=== PATIENT | female | born 2005 | race African-American/Black ===

== ENCOUNTER 2024-01-16 09:07 | Emergency (ER) | payer SELFPAY ==
[2024-01-16 09:10] VITALS: BP 123/83
--- NOTE | 2024-01-16 09:40 | ED.GENMED ---
History of Present Illness
<Sonia Emery PA-C - Last Filed: 01/16/24 10:19>
General
Chief Complaint: Head Injury
Source: patient
Exam Limitations: none
Time Seen by Provider: 01/16/24 09:15
Nursing documentation reviewed up to this point in time: agreed with
History of Present Illness
History of Present Illness:
18-year-old female with history of chronic migraines presents to the emergency department for evaluation of head injury. Patient is a student at [employer] and states this morning she was helping to bring the horses into a barn when
one of the horses became excited and the horses face struck the patient in the left side of the face. Patient states that she stumbled slightly but did not fall over. Patient denies any loss of consciousness. This was witnessed by many other
individuals. Patient states that immediately following the impact she lost hearing in her left ear very temporarily which returned a few minutes later. Patient endorses general 'fogginess 'feeling since the head strike with mild facial pain.
Patient denies any severe headache or any episodes of vomiting. Patient denies any retrograde amnesia, dizziness/lightheadedness, visual changes, neck pain.
However�patient states that while she was filling out the forms in the emergency department her handwriting seemed 'off '.
Patient's roommate who has been with her for the past few hours states that she is acting normally.
Review of Systems
<Sonia Emery PA-C - Last Filed: 01/16/24 10:19>
Review of Systems
Allergies reviewed?: Yes
All Other Systems: ROS reviewed and negative except as documented in HPI and ROS
Phy Exam
<Sonia Emery PA-C - Last Filed: 01/16/24 10:19>
Physical Exam
Physical Exam:
GENERAL: no acute distress
HEENT: atraumatic, extraocular muscles intact, no signs of entrapment, dentition intact with no teeth malalignment, negative tongue depressor bite test, right and left external auditory canal widely patent with intact tympanic membrane. No
hemotympanum bilaterally. No tenderness or obvious deformity to nasal bridge. Protecting airway. No other obvious trauma
NECK: no midline tenderness, normal range of motion, NEXUS criteria negative, no other obvious trauma
BACK: no midline tenderness, no other obvious trauma
LUNGS: In no apparent respiratory distress
CARDIOVASCULAR: regular rate and rhythm
ABDOMEN: soft, non-tender, no masses, no other obvious trauma
PELVIS: stable, no obvious injury
EXTREMITIES: moving all extremities, distal pulses intact, no other obvious trauma. Strength 5 out of 5 in upper and lower extremities. Sensation fully intact.
NEUROLOGIC: awake, alert x 3, no focal deficits, normal [id number], steady gait, speech fluid.
Scores
<Ruddy Motta MD - Last Filed: 01/16/24 11:32>
PECARN >2 YEARS
GCS <15: No
Signs basilar skull fracture: No
LOC: No
Patient vomiting: No
Severe headache: No
Severe mechanism: No
If any criteria positive, consider head CT: No
Course
<Sonia Emery PA-C - Last Filed: 01/16/24 10:19>
Orders/Labs/Results
Orders:
Orders
01/16/24 09:40
Ibuprofen [Motrin] 400 mg PO NOW STA
Vital Signs
Initial and Last Documented VS:
Initial Vital Signs
Temp Pulse Resp BP Pulse Ox
98 F 76 16 123/83 99
01/16/24 09:10 01/16/24 09:10 01/16/24 09:10 01/16/24 09:10 01/16/24 09:10
Last Documented Vital Signs
Temp Pulse Resp BP Pulse Ox
98 F 76 16 123/83 99
01/16/24 09:10 01/16/24 09:10 01/16/24 09:10 01/16/24 09:10 01/16/24 09:10
<Ruddy Motta MD - Last Filed: 01/16/24 11:32>
Orders/Labs/Results
Orders:
Orders
01/16/24 09:40
Ibuprofen [Motrin] 400 mg PO NOW STA
Vital Signs
Initial and Last Documented VS:
Initial Vital Signs
Temp Pulse Resp BP Pulse Ox
98 F 76 16 123/83 99
01/16/24 09:10 01/16/24 09:10 01/16/24 09:10 01/16/24 09:10 01/16/24 09:10
Last Documented Vital Signs
Temp Pulse Resp BP Pulse Ox
98 F 76 16 123/83 99
01/16/24 09:10 01/16/24 09:10 01/16/24 09:10 01/16/24 09:10 01/16/24 09:10
<Sonia Emery PA-C - Last Filed: 01/16/24 10:19>
MDM/Problems Addressed
Differential Diagnosis Includes:
Not limited to: Contusion, concussion, doubt intracranial hemorrhage or skull fracture
MDM/Problems Addressed:
18-year-old female presenting following head injury with no associated loss of consciousness. No dizziness, vomiting, severe headache, visual changes. Did have very brief hearing loss in left ear although resolved. Vitals are stable. Physical
exam as above. Patient is well-appearing, in no apparent distress. No obvious signs of trauma on exam. C-spine is nontender. No evidence of facial bone or jaw fracture. Patient has no focal neurologic deficits on exam. She has steady gait and
fluid speech. Negative Nexus head CT criteria. No blood thinners. Very low suspicion for acute intracranial abnormality. Shared decision making with patient and will hold off on head CT at this time. Patient will monitor symptoms closely at
home and follow-up with primary care. Patient stable for discharge. Patient seen with attending physician.
Chronic conditions affecting care:
N/A
Acute Exacerbation and/or Progression of Chronic Illness:
N/A
<Sonia Emery PA-C - Last Filed: 01/16/24 10:19>
*Pulse Oximetry
Patient hypoxic: no
*EKG
Interpreted by ED Provider?: NA
*Eyeglass Lens Cutter Interpretation
Rate: Eyeglass Lens Cutter- N/A
*Critical Care Note
Total Time (30-74mins, 75-104mins- exclusive of procedures): Not Applicable
ED Attending Note
<Sonia Emery PA-C - Last Filed: 01/16/24 10:19>
-
Portions of this chart may have been created with voice recognition software.� Occasional wrong word or��sound alike� substitutions may have occurred due to the inherent limitations of voice recognition software.
<Ruddy Motta MD - Last Filed: 01/16/24 11:32>
ED Attending Note
Patient seen and examined by attending physician: Yes
I performed the substantive portion of visit, reviewed & personally made and approve the management plan that is documented in note by myself or OFE.: Yes
ED Attending Note:
Patient was head butted by a horse. No LOC. [place] like she had some transient decreased hearing in her left ear. [place] slightly foggy. No vomiting no neck pain no other complaints.
Patient is fully awake and alert. In no distress. No temporal swelling no hematoma. No outward signs of trauma. Neck is supple and nontender. Grossly nonfocal. TMs are clear. Extraocular muscles intact.
Impression minor head injury. Discussed plus minus of CT scan. Clinically do not feel CT is necessary. Patient is comfortable with outpatient observation
Discharge Plan
Departure
Patient Disposition: Home (Routine Discharge)
Date of Disposition: 01/16/24
Time of Disposition: 10:19
Patient with high blood pressure during this ER visit?: No
Condition: Good
Covid-19: Not Applicable
Discharge Problem:
Head injury
Instructions: Concussion, Adult (DC), Head Injury in Adults (DC)
Referrals:
Giovanna Adams MD [Family Provider] - Follow up in 5-7 days
Stand Alone Forms: Return to Work
Activity Restrictions/Additional Instructions:
RETURN TO THE EMERGENCY DEPARTMENT WITH ANY SEVERE HEADACHE/NECK PAIN, INTRACTABLE NAUSEA/VOMITING, DIZZINESS, CONFUSION, VISUAL CHANGES, WORSENING IN CURRENT SYMPTOMS, OR ANY OTHER CONCERNS
-You should follow-up with your Workmen's Comp. physician for further evaluation/management.
-You can take Motrin at home as needed for any discomfort. It is important to stay well-hydrated and get plenty of rest.
-Follow-up with primary care
Monitor symptoms closely and return to the emergency department with any acute worsening/new symptoms
Interventions
Interventions:
*Risk Screen - Suicide Last Done: 01/16/24 09:56
*General Assessment Last Done: 01/16/24 09:56
*Neglect/Abuse Screening Last Done: 01/16/24 09:56
ED- Fall Risk Assessment Last Done: 01/16/24 10:27
*ED COVID-19 Vaccine History Last Done: 01/16/24 09:56
*Nursing Disposition Last Done: 01/16/24 10:27
ED- Neurological Assessment Last Done: 01/16/24 09:56
ED-Skin Assessment Last Done: 01/16/24 09:56
Discharge Date and Time
Discharge Date/Time: 01/16/24 10:28
Print Language: LAO
[2024-01-16] MEDS: MOTRIN 400 MG PO (09:54)
[2024-01-16 09:56] VITALS: BMI 31.1
--- NOTE | 2024-01-16 10:13 | EDRN ---
Dr. Motta in room w/pt at this time.
== END 2024-01-16 10:28 | disposition home or self-care (01) ==
LOC: EMR 09:07
PROVIDERS: EMERGENCY PHYSICIAN Emergency Medicine
DX: S09.90XA Unspecified injury of head, initial encounter (principal); W55.12XA Struck by horse, initial encounter
CPT/HCPCS: 99283